=== PATIENT | female | born 1995 | race Two or more races ===

== ENCOUNTER 2020-11-07 11:47 | Emergency (ER) | payer OTHER ==
[~2020-11-07] VITALS: Ht 160 cm; Wt 95.7 kg
== END 2020-11-07 16:47 | disposition home or self-care (01) ==
LOC: ER 11:47
DX: B34.9 Viral infection, unspecified (principal); B37.3 Candidiasis of vulva and vagina; Z11.52 Encounter for screening for COVID-19

== ENCOUNTER 2020-11-28 23:08 | Emergency (ER) | payer OTHER ==
[~2020-11-28] VITALS: Ht 160 cm; Wt 96.6 kg
[2020-11-28] MEDS ORDERED: PRENATALES (23:39)
[2020-11-29] MEDS ORDERED: MACROBID 100 M100 MG PO (03:38)
== END 2020-11-29 | disposition home or self-care (01) ==
LOC: ER 23:08
DX: N93.9 Abnormal uterine and vaginal bleeding, unspecified (principal)

== ENCOUNTER 2020-12-06 13:14 | Day surgery (SDC) | payer OTHER ==
[~2020-12-06] VITALS: Ht 160 cm; Wt 94.8 kg
[~2020-12-06 13:14] MED LIST: MACROBID 100 M100 MG PO; PRENATALES
== END 2020-12-07 00:15 | disposition home or self-care (01) ==
LOC: ER 13:14 → CIR.AMB 19:05
PROVIDERS: ATTEND Obstetrics & Gynecology
DX: O03.4 Incomplete spontaneous abortion without complication (principal); Z20.822 Contact with and (suspected) exposure to COVID-19